=== PATIENT | male | born 1940 | race Caucasian/White ===

== ENCOUNTER → 2016-09-18 | Outpatient (CLI) | payer OTHER | LOC: CIMAGING 14:58 | PROVIDERS: ATTEND Specialist | DX: N13.30 Unspecified hydronephrosis (principal) | CPT/HCPCS: 76770-PO ==

== ENCOUNTER 2017-02-22 07:40 | Day surgery (SDC) | payer OTHER ==
[2017-02-22] MEDS ORDERED: LIDOCAINE 1% 300 MG/30 ML SDV ONE (08:06)
--- NOTE | 2017-02-22 08:24 | PDGENHP ---
History & Physical Chief Complaint: lightheadedness History of Present Illness: pt with previous pvi, having palpitations and lightheadedness Pertinent Past, Social, Family History: none Relevant Physical Exam: S1 S2 regular no s3 Cardiorespiratory Assessment: normal
--- NOTE | 2017-02-22 12:57 | EPPROC ---
Electrophysiology Procedure Note: Procedure: LINQ implant Indication: Lightheadedness and palpitation occurring once a month Procedure: Parts prepared and draped. LA given. Incision placed. Subcutaneous tissue dissected. Using usual technique, LINQ implanted. John placed. Dry sterile dressing placed. pt left the CVC in stable condition. Conclusion: Successful LINQ implant Patient Problems: Problems Problem Status Onset Atrial fibrillation Acute Mitral valve replaced Acute
== END 2017-02-22 10:00 | disposition home or self-care (01) ==
LOC: FCATH 07:40
PROVIDERS: ATTEND Internal Medicine Cardiovascular Disease
PROC: 0JH60PZ Insertion of Cardiac Rhythm Related Device into Chest Subcutaneous Tissue and Fascia, Open Approach (ICD-10-PCS; principal; 2017-02-22)
DX: R42 Dizziness and giddiness (principal); R00.2 Palpitations
CPT/HCPCS: C1764

== ENCOUNTER → 2017-03-21 | Outpatient (CLI) | payer OTHER ==
--- NOTE | 2017-03-23 12:16 | CPEEG ---
[f rep st] ELECTROENCEPHALOGRAM EEG REPORT DATE OF STUDY: HISTORY: The patient is a 76-year-old gentleman who is being evaluated for question of seizure or fo pierce abnormalities. This is a technically adequate study obtained following partial sleep deprivation. The film has some artifact which obscures interpretation, but it is otherwise good quality. The background consists o f an 8 Hz posterior predominant symmetric alpha rhythm which attenuates on eye opening. Photic stimu lation produces some driving responses which are symmetric. Hyperventilation produces minimal buildu p. There are periods of drowsiness with slowing of the background, but there are no areas of focal s lowing and no epileptiform discharges and no electrographic seizures. INTERPRETATION: This is a normal awake and drowsy EEG recording. /[id number]/MODL
== END ==
LOC: FCPNEURO 11:55
PROVIDERS: ATTEND Psychiatry & Neurology Neurology
DX: R40.4 Transient alteration of awareness (principal)

== ENCOUNTER → 2017-08-13 | Outpatient (CLI) | payer OTHER ==
[~2017-08-13] MED LIST: GADOBUTROL 10 ML VIAL IVP ONE
== END ==
LOC: FIMAGING 08:24
PROVIDERS: ATTEND Internal Medicine Cardiovascular Disease
DX: G40.909 Epilepsy, unspecified, not intractable, without status epilepticus (principal); R41.0 Disorientation, unspecified; Z86.73 Personal history of transient ischemic attack (TIA), and cerebral infarction without residual deficits
CPT/HCPCS: 70553; A9585

== ENCOUNTER → 2018-01-25 | Outpatient (CLI) | payer OTHER ==
[~2018-01-25] MED LIST changes: -GADOBUTROL 10 ML VIAL IVP ONE; +IOPAMIDOL (ISOVUE 370) 100 ML BTL IV ONE
== END ==
LOC: FIMAGING 13:29
PROVIDERS: ATTEND Internal Medicine Cardiovascular Disease
DX: I77.810 Thoracic aortic ectasia (principal); R91.8 Other nonspecific abnormal finding of lung field
CPT/HCPCS: 71275; 93306; Q9967; 82565-PO

== ENCOUNTER → 2018-02-14 | Outpatient (CLI) | payer OTHER | LOC: BHFA 13:00 | PROVIDERS: ATTEND Internal Medicine Cardiovascular Disease | DX: I48.91 Unspecified atrial fibrillation (principal) ==

== ENCOUNTER 2018-09-17 13:19 | Emergency (ER) | payer OTHER | END 2018-09-17 14:30 | disposition home or self-care (01) | LOC: CED 13:19 ==

== ENCOUNTER 2018-09-20 12:00 | Day surgery (SDC) | payer OTHER | END 2018-09-20 12:40 | disposition home or self-care (01) | LOC: FCATH 12:00 ==